=== PATIENT | female | born 1940 | race Caucasian/White ===

== ENCOUNTER 2020-01-18 06:26 | Day surgery (SDC) | payer MEDICARE, BC ==
[2020-01-18] MEDS ORDERED: Scopolamine 1.5 MG Transdermal Patch TOP SCH (06:30)
[2020-01-18] MEDS ORDERED: Acetaminophen 500 MG Tab PO ONE (06:30)
[2020-01-18] MEDS ORDERED: Bupivacaine 0.5%/EPINEPHrine 1:200,000 50 ML MDV ONE (06:38)
[2020-01-18] MEDS ORDERED: cefOXitin 2 GM in Sodium Chloride 0.9% 50 ML IV ONE (07:00)
[2020-01-18] MEDS ORDERED: Glycopyrrolate 0.2 MG/ML 5 ML MDV ONE (07:13)
[2020-01-18] MEDS ORDERED: Succinylcholine 200 MG/10 ML MDV ONE (07:13)
[2020-01-18] MEDS ORDERED: Neostigmine Methylsulfate 1 MG/ML 5 ML Syringe ONE (07:13)
[2020-01-18] MEDS ORDERED: Propofol 200 MG/20 ML SDV ONE (07:13)
[2020-01-18] MEDS ORDERED: Ondansetron 4 MG/2 ML SDV ONE (07:13)
[2020-01-18] MEDS ORDERED: Rocuronium 50 MG/5 ML Vial ONE (07:13)
[2020-01-18] MEDS ORDERED: Dexamethasone 4 MG/ML SDV ONE (07:13)
[2020-01-18] MEDS ORDERED: fentaNYL 250 MCG/5 ML SDV ONE (07:15)
[2020-01-18] MEDS: Dextrose 5%-Lactated Ringers 1,000 ML IV SCH (07:41)
[2020-01-18] MEDS ORDERED: Ropivacaine 35 ML, dexAMETHasone 8 MG, EPINEPHrine 0.4 MG, Sodium Chloride 0.9% 42.6 ML NERVRT SCH ×4 (08:15)
[2020-01-18] MEDS ORDERED: Ketamine 500 MG/5 ML MDV IV SCH (08:15)
[2020-01-18] MEDS ORDERED: Sugammadex Sodium 200 MG/2 ML VIAL ONE (09:03)
[2020-01-18] MEDS ORDERED: hydrOXYzine HCL 100 MG/2 ML SDV IM ONE (09:10)
[2020-01-18] MEDS ORDERED: fentaNYL 100 MCG/2 ML SDV IVPUSH ONE (09:11)
[2020-01-18] MEDS ORDERED: Naloxone 0.4 MG/ML SDV ONE (09:15)
[2020-01-18] MEDS ORDERED: Acetaminophen/HYDROcodone 325-5 MG Tab PO PRN (10:50)
[2020-01-18] MEDS ORDERED: SCOPOLAMINE PATCH CHECK TOP SCH (11:00)
[2020-01-18] MEDS ORDERED: Ondansetron 4 MG/2 ML SDV IVPUSH PRN (11:00)
[2020-01-18] MEDS ORDERED: HYDROmorphone 1 MG/ML Syringe IV PRN (11:00)
[2020-01-18] MEDS ORDERED: HYDROmorphone 0.5 MG/0.5 ML Syringe IVPUSH PRN (11:00)
[2020-01-18] MEDS ORDERED: ALBUTEROL INH PRN (12:01)
[2020-01-18] MEDS ORDERED: Pantoprazole 40 MG Vial IVPUSH SCH (14:00)
[2020-01-18] MEDS: cefOXitin 2 GM in Sodium Chloride 0.9% 50 ML IV SCH ×2 (14:50→20:39)
[2020-01-18] MEDS: Acetaminophen 325 MG Tab PO SCH ×2 (14:51→20:38)
[2020-01-18] MEDS ORDERED: Tamsulosin 0.4 MG Cap.ER PO ONE ×2 (17:27→21:00)
[2020-01-18] MEDS: Enoxaparin 40 MG/0.4 ML Syringe SUBCUT SCH (17:49)
[2020-01-18] MEDS: Carvedilol 6.25 MG Tab PO SCH (20:39)
[2020-01-18] MEDS ORDERED: Nortriptyline 25 MG Cap PO SCH (21:00)
[2020-01-18] MEDS ORDERED: COMBIGAN EYELF SCH (21:00)
[2020-01-19] MEDS: Acetaminophen 325 MG Tab PO SCH ×2 (01:51→07:44)
[2020-01-19] MEDS: cefOXitin 2 GM in Sodium Chloride 0.9% 50 ML IV SCH ×2 (01:51→07:45)
[2020-01-19] MEDS: Dextrose 5%-Lactated Ringers 1,000 ML IV SCH (03:50)
[2020-01-19] MEDS: Enoxaparin 40 MG/0.4 ML Syringe SUBCUT SCH (05:42)
[2020-01-19] MEDS ORDERED: Levothyroxine 50 MCG Tab PO SCH (07:30)
[2020-01-19] MEDS: Carvedilol 6.25 MG Tab PO SCH (08:23)
[2020-01-19] MEDS ORDERED: LUMIGAN 0.01% EYEBOTH SCH (09:00)
[2020-01-19] MEDS ORDERED: Furosemide 40 MG Tab PO SCH (09:00)
[2020-01-19] MEDS ORDERED: Tamsulosin 0.4 MG Cap.ER PO ONE (09:00)
[2020-01-19] MEDS ORDERED: Spironolactone 25 MG Tab PO SCH (09:00)
[2020-01-19] MEDS ORDERED: Gabapentin 300 MG Cap PO SCH (09:00)
--- NOTE | 2020-01-19 20:56 | DISCH ---
ADMISSION DIAGNOSES: 1. Chronic cholecystitis and cholelithiasis. 2. Incarcerated incisional hernia. DISCHARGE DIAGNOSES: Diagnostic laparoscopy with: 1. Cholecystectomy. 2. Repair of incarcerated incisional hernia. POSTOPERATIVE DIAGNOSES: 1. Chronic cholecystitis and cholelithiasis. 2. Incarcerated incisional hernia (umbilical trocar site). Date of procedure 01/18/2020. Surgeon: Mike Lopez MD. HISTORY: Meghann Ho is a 79-year-old female with chronic abdominal pain. After preoperative evaluation and discussion of possible risks and possible complications, she wished to proceed with surgical procedure. HOSPITAL COURSE: Meghann had her surgery on 01/18/2020. She had no operative complications. On postoperative day #1, her pain was well managed. Her activity was good. She did have difficulty urinating on the night of surgery and was given Flomax and this resolved. Vital signs were stable. Pain was managed with Tylenol. Activity was good. She tolerated a diet, and she was able to be discharged to home. PHYSICAL EXAMINATION: GENERAL: Meghann Ho is a pleasant 79-year-old female. Height is 5 feet 2.99 inches, weight is 151 pounds. VITAL SIGNS: TPR at 0747; 95.2, 56, 16, blood pressure 146/59. HEENT: Negative. NECK: Supple. HEART: Regular rate and rhythm. LUNGS: Clear. ABDOMEN: Dressings dry and intact. HANNAH drain is intact and will be removed prior to discharge. It put out 38 mL of serosanguineous drainage. Abdominal binder has been on. EXTREMITIES: Without peripheral edema. DISPOSITION: Discharged to home. CONDITION: Stable and improving. FOLLOWUP: Appointment with Carola Aggarwal PA-C, in 01/27/2020, at 9 a.m. MEDICATIONS: Continue home medication as she was on prior to admission. DIET: Usual diet as tolerated. Drink 8-10 glasses of water a day. DISCHARGE INSTRUCTIONS: Activity: No lifting greater than 10 pounds for 2 weeks. Other activity: Walk at least 6 times daily inside your home. Driving: Do not drive for 1 week. Shower/bathing: May shower. Wound incision care: Keep operative site clean and dry. Wear abdominal binder for 2 weeks and then as tolerated. SPECIAL INSTRUCTIONS: Notify provider if any fever, increased pain, swelling, redness, drainage, nausea, or vomiting. Other special instruction: Use incentive spirometer 10 times every hour while awake.
--- NOTE | 2020-01-30 14:06 | OR ---
DATE OF PROCEDURE: 01/18/2020 SURGEON: Mike Lopez MD PREOPERATIVE DIAGNOSIS: Chronic cholecystitis and cholelithiasis. POSTOPERATIVE DIAGNOSES: 1. Chronic cholecystitis and cholelithiasis. 2. Incarcerated incisional hernia. OPERATIVE PROCEDURE: Diagnostic laparoscopy with: 1. Cholecystectomy (14141). 2. Repair of incarcerated incisional hernia (79163). ANESTHESIA: General. CONDUIT INSTALLER: Carola Aggarwal PA-C INDICATIONS FOR PROCEDURE: This is a 79-year-old female presenting with episodes of right upper quadrant and epigastric pain with radiation to back. Workup included an ultrasound showing cholelithiasis. Recent examination did show some discomfort in the area of the right subcostal area. Plan is to proceed with a laparoscopic or if necessary open cholecystectomy. Potential risks of the procedure including bleeding, infection, injury to underlying viscera such as common bile duct, possibility of stones migrating into the common bile duct as well as potentially requiring additional procedures for correction were reviewed. The remote possibility of some incomplete relief of her symptoms was also gone over and the patient wishes to proceed. DETAILS OF PROCEDURE: The patient was taken to the operating room. After general endotracheal anesthesia was induced, the abdomen was prepped and draped. A transverse epigastric incision was made and peritoneal cavity entered under direct vision with an Optiview trocar, inflated to 15 mmHg pressure with CO2. Laparoscope was reinserted. No underlying trocar insertion site injuries were seen. The area around the umbilicus was noted to have an incisional hernia. This appeared to be from a trocar site just below the umbilicus, likely used for laparoscopic hysterectomy. An incision over this was then made and the 12-mm camera port was then placed directly through the area of herniation to allow us closure at the completion of the procedure. A 5-mm right subcostal trocar was also then placed and the upper abdomen examined. The patient was noted to have a thick-walled and somewhat childers-appearing gallbladder consistent with chronic cholecystitis. The gallbladder was then retracted anteriorly and laterally, and dissection began on the gallbladder neck with Harmonic scalpel and continued around the gallbladder neck and cystic duct junction. Once that area as well as the adjacent cystic artery were well cleared, both structures were clipped 3 times proximally and once distally and divided. The gallbladder was then dissected off the gallbladder bed using Harmonic scalpel and delivered through the epigastric trocar site and inspection of the contents showed some small stones and sludge within the gallbladder. The area of dissection was inspected. No bleeding was noted. The patient was felt not to require a drain. The camera was brought back up to the epigastric site. The trocar at the incisional hernia was then removed and this was then closed using laparoscopic suture passers with 0 Vicryl stitch closing the fascia with a transverse orientation. Bilateral transversus abdominis plane blocks were then placed and the remaining trocars removed. The fascia at the epigastric site was closed with 0 Vicryl stitch and the skin at each incision with 4-0 Vicryl skin stitch. Prior to closure, bilateral transversus abdominis plane blocks were then placed and the wounds were all anesthetized with 1% lidocaine and the patient was taken to the recovery room in satisfactory condition. There were no evident complications. Physician computer assistant, Carola Aggarwal, played an essential role in assisting in this case, helping to position the patient, retract structures as needed, as well as suturing and cutting sutures when indicated. Her presence improved patient safety and decreased the operative time. Mike Lopez MD /[id number]
== END 2020-01-19 09:50 | disposition home or self-care (01) ==
LOC: JP.SDS 06:26 → JP.ICU 10:15 → JP.SDS 01-19 09:50
PROVIDERS: ATTEND Surgery
DX: K80.10 Calculus of gallbladder with chronic cholecystitis without obstruction (principal); K43.0 Incisional hernia with obstruction, without gangrene; I11.0 Hypertensive heart disease with heart failure; I50.9 Heart failure, unspecified; J45.20 Mild intermittent asthma, uncomplicated; E03.9 Hypothyroidism, unspecified; F33.0 Major depressive disorder, recurrent, mild; J45.909 Unspecified asthma, uncomplicated; I25.10 Atherosclerotic heart disease of native coronary artery without angina pectoris; Z88.8 Allergy status to other drugs, medicaments and biological substances; Z79.899 Other long term (current) drug therapy
CPT/HCPCS: 36415; 47562; 49655; 80053; 82247; 83735; 83880; 84075; 84100; 85027; 88304; A9270; C9113; J0171; J0330; J0694; J1100; J1170; J1650; J2310; J2405; J2704; J2710; J2795; J3010; J3410; J3490; J7050; J7121

== ENCOUNTER 2020-02-21 08:18 | Day surgery (SDC) | payer MEDICARE, BC ==
[~2020-02-21 08:18] MED LIST: Midazolam 1 MG/ML 2 ML SDV ONE; Propofol 200 MG/20 ML SDV ONE; fentaNYL 100 MCG/2 ML SDV ONE
[2020-02-21] MEDS ORDERED: Sodium Chloride 0.9% 1,000 ML IV SCH (09:00)
[2020-02-21] MEDS ORDERED: Ondansetron 4 MG/2 ML SDV ONE (10:17)
--- NOTE | 2020-02-21 14:22 | OR ---
DATE OF PROCEDURE: 02/21/2020 SURGEON: Shane Dunlap MD PROCEDURE: Colonoscopy. FINDINGS: Very mild inflammation (biopsied, random for this evaluation, ascending, sigmoid, and rectum). COMPLICATIONS: None. REFRIGERATOR REPAIR TECHNICIAN: None. RISKS: Risks, benefits, alternatives, and limitations including, but not limited to infection, bleeding, and perforation were explained to the patient, who wished to proceed. PROCEDURE IN DETAIL: The patient was placed in left lateral decubitus position. Digital rectal exam was performed without abnormality. Scope was introduced atraumatically to the ileocecal valve. A photo was taken of this. The scope was brought back through the ascending, transverse, descending colon, and retroflexed. The patient had a very tortuous sigmoid colon and ascending colon. She did have very mild diverticula (less than 10) without evidence of diverticulitis or bleeding. As the scope was brought back, the patient had very mild inflammation, and the aforementioned areas were biopsied as described above. No abnormal bleeding was noted after removal. No polyps. No old or new blood or significant inflammation. No abnormalities on retroflexion. Greater than 8 minutes was spent removing the scope. The patient tolerated the procedure well. Shane Dunlap MD /[id number]
== END 2020-02-21 11:51 | disposition home or self-care (01) ==
LOC: JP.SDS 08:18
PROVIDERS: ATTEND Surgery
DX: K52.9 Noninfective gastroenteritis and colitis, unspecified (principal); K57.30 Diverticulosis of large intestine without perforation or abscess without bleeding; J45.909 Unspecified asthma, uncomplicated; I50.9 Heart failure, unspecified; I13.0 Hypertensive heart and chronic kidney disease with heart failure and stage 1 through stage 4 chronic kidney disease, or unspecified chronic kidney disease; N18.9 Chronic kidney disease, unspecified
CPT/HCPCS: 45380; J2250; J2405; J2704; J3010; J7030

== ENCOUNTER 2021-03-30 07:56 | Day surgery (SDC) | payer MEDICARE, BC ==
[2021-03-30] MEDS ORDERED: fentaNYL 100 MCG/2 ML SDV ONE (08:07)
[2021-03-30] MEDS ORDERED: Propofol 200 MG/20 ML SDV ONE (08:07)
[2021-03-30] MEDS: Dextrose 5%-Lactated Ringers 1,000 ML IV SCH (08:48)
[2021-03-30] MEDS: Ampicillin/Sulbactam Na 3 GM in Sodium Chloride 0.9% 100 ML IV ONE (10:24)
[2021-03-30] MEDS ORDERED: Ondansetron 4 MG/2 ML SDV ONE (10:37)
--- NOTE | 2021-03-31 17:01 | OR ---
DATE OF PROCEDURE: 03/30/2021 SURGEON: Mike Lopez MD PREOPERATIVE DIAGNOSIS: Recently diagnosed multiple gastric ulcers. POSTOPERATIVE DIAGNOSIS: Healed prepyloric ulcers with persistent shallow erosions and antral gastritis. PROCEDURE PERFORMED: Esophagogastroduodenoscopy with antral biopsies for CLOtest. ANESTHESIA: IV sedation. INDICATION FOR PROCEDURE: The patient is a 80-year-old female presenting after having an upper endoscopy for bleeding gastric ulcers in [place] on 02/20/2021. At that time, she was noted to have 4 ulcers, and the H pylori assay was negative. She has been on twice a day Protonix 40 mg and generally feels good and not had much in the way of symptoms prior to the bleeding episode in March. The plan is to proceed with an upper GI endoscopy with biopsies as indicated to ascertain if we have healing of the ulcers. Potential risks of the procedure including bleeding and perforation were discussed, and the patient wishes to proceed. DETAILS OF PROCEDURE: The patient was taken to the operating room and placed in a left lateral decubitus position. IV sedation was administered after which the upper GI endoscope was passed orally through the length of the esophagus into the stomach with retroflexion view of the fundus, and thereafter, through the pyloric channel and into the proximal duodenum. Findings included normal hypopharynx, larynx, upper esophageal sphincter, and esophageal body. A small hiatal hernia was present, but without significant inflammation or upward migration of the columnar mucosa. Within the stomach, a small amount of retained bile was present. In the antrum and pre-pyloric area, there were 4 very shallow erosions present. Overall, the ulcers had essentially healed, and at this point, I think it is reasonable to assume that these are nonbleeding in nature. The pyloric channel and proximal duodenum were unremarkable. At this point, biopsies were taken from the antrum to reassess the patient's H pylori status, and minimal bleeding from the biopsy site was seen and the procedure then concluded. Recommendation would be to continue Protonix 40 b.i.d. x2 more weeks then probable go to a 40 mg daily regimen. The patient is on aspirin, but maintaining this is probably a good idea given her underlying cardiovascular history, and assuming that today's H. pylori assay is negative, there would be no other correctable problems recurrence of the ulcers short of the continued use of proton pump inhibitors or perhaps H2 blockers over time. The patient will be following up with Gayatri Lafleur MD, in one month. Mike Lopez MD Job #: [id number]
== END 2021-03-30 12:15 | disposition home or self-care (01) ==
LOC: JP.SDS 07:56
PROVIDERS: ATTEND Surgery
DX: K25.9 Gastric ulcer, unspecified as acute or chronic, without hemorrhage or perforation (principal); K29.60 Other gastritis without bleeding; J45.909 Unspecified asthma, uncomplicated; I25.10 Atherosclerotic heart disease of native coronary artery without angina pectoris; I50.9 Heart failure, unspecified; N18.9 Chronic kidney disease, unspecified; E03.9 Hypothyroidism, unspecified
CPT/HCPCS: 43239; 87081; J0295; J2405; J2704; J3010; J7121